=== PATIENT | male | born 1990 | race African-American/Black ===

== ENCOUNTER 2024-12-02 22:57 | Emergency (ER) | payer OTHER ==
[2024-12-02 23:51] LABS: #Basophils Less than 0.03 10x3/uL (0.0-0.2); #Eosinophils 0.10 10x3/uL (0.0-0.7); #Monocytes 0.42 10x3/uL (0.11-0.59); #Neutrophils 3.36 10x3/uL (1.40-6.50); %Basophils 0.3 % (0.0-1.0); %Eosinophils 1.7 % (0.0-10.0); %Lymphocytes 34.2 % (21.0-51.0); %Monocytes 7.1 % (0.0-10.0); %Neutrophils 56.5 % (42.0-75.0); Hematocrit 43.5 % (42.0-52.0); Hemoglobin 15.6 g/dL (14.0-18.0); Mean Corpuscular Hemoglobin 30.4 pg (27.0-31.0); Mean Corpuscular Volume 84.6 fL (78.0-98.0); Platelet Count 192 10x3/uL (130-400); Red Blood Cell (RBC) Count 5.14 mill/uL (4.70-6.10); White Blood Cell (WBC) Count 5.94 10x3/uL (4.8-10.8)
[2024-12-03 00:43] LABS: ALT (SGPT) 28 U/L (Less than 45); Albumin 4.8 g/dL (3.1-4.5); Alkaline Phosphatase 60 U/L (40-110); Anion Gap 15 mmol/L (10-20); BUN (Urea Nitrogen) 14 mg/dL (8.9-20.6); CK (CPK) 373 U/L (30-200); Calc. Creatinine Clearance 0 mL/min (70-130); Calcium 9.8 mg/dL (7.8-10.44); Carbon Dioxide 26 mmol/L (22-29); Chloride 101 mmol/L (98-107); Globulin 2.7 g/dL (2.4-3.5); Glucose 91 mg/dL (70-105); Potassium 3.8 mmol/L (3.5-5.1); Sodium 138 mmol/L (136-145)
[2024-12-03 04:21] LABS: AST (SGOT) 30 U/L (11-34); Bilirubin, Total 0.5 mg/dL (0.3-1.2)
== END 2024-12-03 01:15 | disposition home or self-care (01) ==
LOC: ERS 22:57
DX: E86.0 Dehydration (principal)
CPT/HCPCS: 80053; 82550; 85025; 93005; 99284